=== PATIENT | male | born 1955 | race Caucasian/White ===

== ENCOUNTER 2024-02-18 19:54 | Emergency (ER) | payer BC ==
[~2024-02-18] VITALS: Ht 157.5 cm; Wt 73.5 kg
[2024-02-18 20:10] VITALS: BP 143/77; PULSE 88; RESP 16; TEMP 97.2; O2SAT 95
[2024-02-18] MEDS: IBUPROFEN 600 MG TAB PO ONE (20:50)
[2024-02-18] MEDS: LIDOCAINE MPF 1% 10 MG/ML VIAL INJ ONE (20:52)
[2024-02-18] MEDS ORDERED: IBUP-2213 PO (21:36)
[2024-02-18] MEDS ORDERED: BACI-418 TP (21:36)
[2024-02-18 21:44] VITALS: BP 143/77; PULSE 88; RESP 16; TEMP 97.2; O2SAT 95
== END 2024-02-18 21:44 | disposition home or self-care (01) ==
LOC: MED 19:54
DX: S91.311D Laceration without foreign body, right foot, subsequent encounter (principal); Z79.899 Other long term (current) drug therapy; I10 Essential (primary) hypertension; E78.5 Hyperlipidemia, unspecified; X58.XXXD Exposure to other specified factors, subsequent encounter
CPT/HCPCS: 12002; 73630; 90471; 90715; 99283; J2001

== ENCOUNTER 2024-02-28 10:41 | Emergency (ER) | payer BC ==
[~2024-02-28] VITALS: Ht 154.9 cm; Wt 75.0 kg
[~2024-02-28 10:41] MED LIST: BACI-418 TP; IBUP-2213 PO
[2024-02-28 10:51] VITALS: BP 148/70; PULSE 72; RESP 16; TEMP 97.6; O2SAT 100
[2024-02-28] MEDS ORDERED: CEPH-588 PO (11:33)
[2024-02-28 11:43] VITALS: BP 148/70; PULSE 72; RESP 16; TEMP 97.6; O2SAT 100
== END 2024-02-28 11:43 | disposition home or self-care (01) ==
LOC: MED 10:41
DX: S91.311D Laceration without foreign body, right foot, subsequent encounter (principal); L03.115 Cellulitis of right lower limb; I10 Essential (primary) hypertension; E78.5 Hyperlipidemia, unspecified; Z48.00 Encounter for change or removal of nonsurgical wound dressing; Z79.899 Other long term (current) drug therapy; X58.XXXD Exposure to other specified factors, subsequent encounter
CPT/HCPCS: 99283